=== PATIENT | male | born 1940 | race Hispanic/Latino ===

== ENCOUNTER 2018-04-26 22:12 | Emergency (ER) | payer MEDICARE ==
[~2018-04-26 22:12] MED LIST: ALEN70TA10 PO; AMLO10TA7 PO; FOLI0.4T2 PO; METH2.5T6 PO; OSEL75 PO; SAW/1TAB2 PO; TAMS-1 PO
[2018-04-26 22:41] LABS: BASOPHILS % (AUTO) 0.6 % (0.0-5.0); EOSINOPHILS % (AUTO) 3.9 % (0.0-8.0); HEMATOCRIT 43.4 % (42-54); MEAN CORPUSCULAR HEMOGLOBIN 34.9 pg (27.0-33.0); MEAN CORPUSCULAR HGB CONC 35.1 g/dL (32.0-36.0); MEAN CORPUSCULAR VOLUME 99.2 fL (79-99); MONOCYTES % (AUTO) 15.8 % (3.0-13.0); NEUTROPHILS % (AUTO) 57.7 % (40.0-77.0); NUCLEATED RED BLOOD CELLS 0.1 % (0.0-0.19); PLATELET COUNT (AUTO) 207 K/uL (130-400); RED BLOOD CELL COUNT(AUTO) 4.37 MIL/uL (4.50-6.20); RED CELL DISTRIBUTION WIDTH 13.6 % (11.0-15.5); WHITE BLOOD COUNT (AUTO) 9.5 K/uL (4.8-10.8)
[2018-04-26 23:07] LABS: CREATININE 1.1 mg/dL (0.5-1.5); POTASSIUM 3.7 mmol/L (3.5-5.1)
[2018-04-26 23:11] LABS: ALBUMIN 3.6 g/dL (3.5-5.0); BILIRUBIN,TOTAL 0.7 mg/dL (0.2-1.0); TOTAL PROTEIN, SERUM 8.3 g/dL (6.0-8.3)
[2018-04-26] MEDS ORDERED: SODIUM CHLORIDE 0.9% 1000ML 1,000 ML IV ONE (23:17)
[2018-04-27 00:46] LABS: BILIRUBIN,URINE Negative (NEGATIVE); COLOR,URINE Yellow (YELLOW); GLUCOSE, URINE (UA) Negative (NEGATIVE); KETONES,URINE Trace mg/dL (NEGATIVE); LEUKOCYTE ESTERASE ,URINE Negative (NEGATIVE); NITRATE,URINE Negative (NEGATIVE); OCCULT BLOOD,URINE Moderate (NEGATIVE); PROTEIN,URINE Negative (NEGATIVE)
[2018-04-27 00:53] LABS: APPEARANCE,URINE CLEAR (CLEAR)
[2018-04-27 01:06] LABS: BACTERIA,URINE Few /HPF (None Seen); MUCUS,URINE Rare LPF (None Seen); SQUAMOUS EPITHELIAL CELL,UR 0-2 /HPF (0-2); WBC,URINE 0-1 /HPF (0-1)
== END 2018-04-27 01:54 | disposition home or self-care (01) ==
LOC: EDH 22:12
DX: M62.81 Muscle weakness (generalized) (principal); M06.9 Rheumatoid arthritis, unspecified; G89.29 Other chronic pain; I10 Essential (primary) hypertension; M19.90 Unspecified osteoarthritis, unspecified site; Z88.2 Allergy status to sulfonamides
CPT/HCPCS: 36415; 71046; 80053; 81001; 82550; 83605; 83735; 84484; 85025; 87804 ×2; 93005; 99284; J7030

== ENCOUNTER → 2020-03-16 | Outpatient (CLI) | payer MEDICARE ==
[~2020-03-16] MED LIST changes: -ALEN70TA10 PO; +ALEN70TA69 PO; +AMLO-258 PO; -AMLO10TA7 PO
== END | disposition home or self-care (01) ==
LOC: RAH 08:29
PROVIDERS: ATTEND Physical Medicine & Rehabilitation
DX: M47.812 Spondylosis without myelopathy or radiculopathy, cervical region (principal); M48.02 Spinal stenosis, cervical region
CPT/HCPCS: 72141

== ENCOUNTER 2025-04-09 12:04 | Emergency (ER) | payer MEDICARE ==
[~2025-04-09] VITALS: Ht 177.8 cm; Wt 83.9 kg
[~2025-04-09 12:04] MED LIST changes: -ALEN70TA69 PO; +ALEN70TA80 PO; +AMLO-257 PO; -AMLO-258 PO; +CALC-1125 PO; +CHOL500051 PO; +ETAN50CA3 SQ; +FLUT15.845 NS; -FOLI0.4T2 PO; +LATA2.5D7 OP; -METH2.5T6 PO; +METO-408 PO; -OSEL75 PO; +POVI5DRO OP; -TAMS-1 PO
--- NOTE | 2025-04-09 12:14 | NUR ---
last well known 04/08/25 1946
--- NOTE | 2025-04-09 12:18 | NUR ---
PT TAKEN TO CT AT THIS TIME.
--- NOTE | 2025-04-09 12:32 | EKG ---
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 : 1940 Requested By: RENNY JAVIER Order Number: [id number] Reading MD: Lena Sanders Measurements Intervals Tea Rate: 54 P: 227 AK: 87 QRS: 53 QRSD: 107 T: 161 QT: 483 QTc: 439 Interpretive Statements Sinus or ectopic atrial bradycardia Atrial premature complexes Probable LVH with secondary repol abnrm Abnormal T, probable ischemia, lateral leads Compared to ECG 04/26/2018 22:22:36 Atrial premature complex(es) now present T-wave abnormality now present Sinus rhythm no longer present ST (T wave) deviation no longer present Possible ischemia still present Electronically Signed On 04-11-2025 08:58:38 CLINICAL RESEARCH PHYSICIAN by Lena Sanders Please click the below link to view image of tracing.
[2025-04-09 12:35] LABS: IMMATURE GRANULOCYTE ABSOLUTE 0.10 K/uL (0-1); NUCLEATED RED BLOOD CELLS 0.0 % (0.0-0.19); PLATELET COUNT (AUTO) 209 K/uL (130-400); RED BLOOD CELL COUNT(AUTO) 4.49 MIL/uL (4.50-6.20); RED CELL DISTRIBUTION WIDTH 13.3 % (11.0-15.5); WHITE BLOOD COUNT (AUTO) 14.0 K/uL (4.8-10.8)
[2025-04-09 12:45] LABS: CREATININE 1.2 mg/dL (0.5-1.3); GLOMERULAR FILTR. RATE CALC 60.0 mL/min (>90); GLUCOSE,RANDOM 93.0 mg/dL (70-105); SODIUM SERUM 137.0 mmol/L (136-145); UREA NITROGEN, BLOOD 14.0 mg/dL (7-18)
--- NOTE | 2025-04-09 12:48 | HMCIMG ---
EXAM: CT Head Without IV contrast. CLINICAL HISTORY: TIA TECHNIQUE: Axial computed tomography images of the head/brain without intravenous contrast. COMPARISON: MRI dated 03/22/2020. FINDINGS: BRAIN: No acute bleed or infarct. Stable chronic ischemic and atrophic changes. VENTRICLES: No hydrocephalus. ORBITS: The orbits are unremarkable. SINUSES AND MASTOIDS: The paranasal sinuses and mastoid air cells are clear. BONES: No fracture. SOFT TISSUES: Unremarkable. IMPRESSION: No acute bleed or infarct. Stable chronic ischemic and atrophic changes. /[place]
[2025-04-09 12:49] LABS: INR 0.98 (0.85-1.15)
--- NOTE | 2025-04-09 13:09 | CONS ---
CONSULT NOTE: Eugenio Saenz Neuro Note # Demographics Consult Type: Acute Stroke Level 1 (0-4.5 hrs) Patient Location: Emergency Room First Name: DARELL AGUILAR Last Name: BLANCO Date of : 1940 Age: 84 Gender: Male Facility: [facility] Time of Initial Page (Central Time): 04/09/2025 12:21 First Contact with Site (Central Time): 04/09/2025 12:21 # HPI Chief Complaint: - weakness (focal) History: 84yom with HTN who p/w dysarthria, aphasia, R facial droop. His says when he first woke up at 7:30AM he seemed normal, then symptoms started after. Last Known Normal: - I have collected independent history specific to time last normal or last known well. We have collaborated with the provider and at this time, we have the most current timeline with the information that is available. 7:30AM # Scores Time of exam and NIHSS (Central Time): 04/09/2025 12:48 Level of Consciousness 1a: [0] = Alert; keenly responsive LOC Questions 1b: [2] = Answers neither correctly LOC Commands 1c: [1] = Performs one correctly Best Gaze 2: [0] = Normal Visual 3: [0] = No visual loss Facial Palsy 4: [2] = Partial paralysis Motor Arm Left 5a: [0] = No drift Motor Arm Right 5b: [0] = No drift Motor Leg Left 6a: [0] = No drift Motor Leg Right 6b: [0] = No drift Limb Ataxia 7: [0] = Absent Sensory 8: [0] = Normal Best Language 9: [2] = Severe aphasia Dysarthria 10: [1] = Ixqh-[id number]-gvcpkyel dysarthria Extinction and Inattention 11: [0] = No abnormality NIHSS Total: 8 # Data Time Head CT personally read by me (Central Time): 04/09/2025 12:[address]: - no bleed - preliminarily reviewed by me, please refer to radiology read for official reading # Assessment Impression: - Ischemic Stroke (Acute) # Plan Thrombolytic/Intervention: Possible IA candidate Thrombolytic Exclusion: > 4.5 hours Possible IA Candidate: - CTA pending - If CTA shows large vessel occlusion, notify neurology and/or neuro- interventional team, per hospital protocol. Blood Pressure Management: Use labetolol 10-20mg IV PRN or nicardipine gtt to maintain BP parameters Target Blood Pressure: - SBP < 220 - DBP < 120 Imaging: (urgency: STAT): - CT Angiogram Head and CT Angiogram Neck AND call back with results if abnormal Imaging: (urgency: routine): - MRI Brain without contrast Diagnostic Test: - echo with bubble study Telemetry for a fib monitoring Therapy/Evaluation: - PT/OT evaluation - speech/swallow consultation - NPO until swallow evaluation Medication: - aspirin 81 mg PO daily atorvastatin 80mg daily, goal LDL <70 Other: - If patient has any neurological deterioration please call me back immediately Additional Recommendations: - Hydrate with NS - Permissive HTN for next 24-48 hours, then gradual control by no more than 15% daily monitoring for neurological stability - Avoid dehydration and relative hypotension - Risk factor modification, including smoking cessation and alcohol moderation if appropriate - Monitor glucose and correct as needed - If cryptogenic non-lacunar stroke on MRI, obtain outpatient cardiac monitoring for a fib - Call back for neurological deterioration Disposition: admit # Logistics Attestation of consult completion: The patient is located at: [facility]. Facility staff participated in the visit. I performed this telemedicine visit from my offsite office utilizing interactive 2 way audio and visual telecommunication technology at the request of the onsite emergency room provider. Total time spent in telemedicine encounter: I spent 23 minutes reviewing clinical data and/or imaging, obtaining history, examining the patient, communicating with the onsite care team, and in preparation of this report. # Demographics First Name: DARELL AGUILAR Last Name: BLANCO Facility: [facility] LAKESHIA RITTER MD Apr 09, 2025 13:09
[2025-04-09] MEDS ORDERED: IOHEXOL 350 MG/ML 100ML INFUS..BTL IV ONE (13:11)
--- NOTE | 2025-04-09 13:15 | HMCIMG ---
EXAM: CR Chest, 1 View. CLINICAL HISTORY: Shortness of breath COMPARISON: None provided. FINDINGS: LUNGS: The lungs show no infiltrate or other acute finding. PLEURAL SPACES: No pleural effusion or pneumothorax. MEDIASTINUM: The cardiomediastinal silhouette is within normal limits. BONES: No acute osseous abnormality. IMPRESSION: No acute cardiopulmonary pathology is evident. /[place]
--- NOTE | 2025-04-09 14:21 | HMCIMG ---
EXAM: CTA Head and Neck with and without Intravenous Contrast. CLINICAL HISTORY: SLURRED SPEECH, FACIAL DROOP. CODE STROKE. TECHNIQUE: Axial CTA images of the head and neck performed with and without intravenous contrast in the arterial phase. Coronal and sagittal reformatted images were generated and reviewed. 3-D reformatted images generated on an independent workstation were also reviewed. NASCET criteria were used in assessment of stenosis. CONTRAST: Contrast injected without incident. COMPARISON: Study dated 04/09. FINDINGS: VASCULATURE:NECK: COMMON CAROTID ARTERIES Atherosclerotic calcific changes along the left carotid bulb, without causing significant luminal narrowing. No significant stenosis. No dissection or occlusion. EXTERNAL CAROTID ARTERIES Patent. INTERNAL CAROTID ARTERIES Atherosclerotic calcific changes along the right proximal internal carotid artery, without significant luminal narrowing. No stenosis by NASCET criteria. No dissection or occlusion. VERTEBRAL ARTERIES No significant stenosis. No dissection or occlusion. HEAD: ANTERIOR CEREBRAL ARTERIES No significant stenosis. No occlusion. No aneurysm. MIDDLE CEREBRAL ARTERIES No significant stenosis. No occlusion. No aneurysm. POSTERIOR CEREBRAL ARTERIES No significant stenosis. No occlusion. No aneurysm. BASILAR ARTERY No significant stenosis. No occlusion. No aneurysm. OTHER: SOFT TISSUES No acute finding. BONES No acute osseous abnormality. IMPRESSION: 1. No acute intracranial or cervical vascular findings. /[place]
[2025-04-09 14:57] LABS: APPEARANCE,URINE CLEAR (CLEAR); GLUCOSE, URINE (UA) NEGATIVE (NEGATIVE); LEUKOCYTE ESTERASE ,URINE NEGATIVE Leu/uL (NEGATIVE); NITRATE,URINE NEGATIVE (NEGATIVE); OCCULT BLOOD,URINE NEGATIVE (NEGATIVE)
--- NOTE | 2025-04-09 14:59 | NUR ---
TRANSFER TO [facility] FOR NEUROLOGY SERVICE , TRANSFER WAS INITIATED BY ER CHARGE NURSE SPOKE WITH LIAM CARRINGTON INFORMATION PROVIDED AND WILL CALL BACK. ELDER CANO
--- NOTE | 2025-04-09 14:59 | NUR ---
TRANSFER CENTER NOTIFIED
--- NOTE | 2025-04-09 15:15 | ERN ---
General Chief Complaint: Stroke Symptoms Stated Complaint: SLURRED SPEECH Time Seen by MD: 12:15 History of Present Illness Initial Comments 84-year-old male past medical history of high blood pressure came in for aphasia dysarthria and facial drooping in the right side which started 7:00 a.m. this morning via time patient arrived symptoms has been started for 5-1/2 hours. Patient otherwise has been concerns. Allergies: Uncoded Allergies: SULFA (Allergy, Unknown, 07/25/15) Home Meds Reported Medications Etanercept (Enbrel) 50 Mg/Ml (1 Ml) Cartridge, 50 MG SQ QWEEK, CARTRIDGE 09/09/24 Calcium Carbonate (Calcium) 600 Mg Calcium (1500 Mg) Tablet, 1 TAB PO AM for 30 Days, #60 TAB 0 Refills 09/09/24 Latanoprost (Latanoprost) 0.005 % Drops, 1 DROP OP HS, ML 0 Refills 09/09/24 Povidone/Pf (Ivizia 0.5% Eye Drop) 0.5 % Drops, 5 ML OP BID, DROP 09/09/24 Fluticasone Propionate (Fluticasone Propionate) 50 Mcg/Actuation [place].susp, 1 SPRAY NS BID, #16 GM 0 Refills 09/09/24 Metoprolol Succinate (Metoprolol Succinate) 25 Mg Tab.er.24h, 1 TAB PO DAILY for 30 Days, #30 TAB 0 Refills 09/09/24 Cholecalciferol (Vitamin D3) (Vitamin D3) 125 Mcg (5000 Unit) Capsule, 1 CAP PO DAILY for 30 Days, #30 CAP 0 Refills 09/09/24 Amlodipine Besylate (Amlodipine Besylate) 5 Mg Tablet, 1 TAB PO DAILY for 30 Days, #30 TAB 0 Refills 09/09/24 Saw/Vit E/Sod [place]/Lyc/Beta/Pyg (Prostate Health Caplet) 1 Each Tablet, 2 TAB PO DAILY, TAB 07/25/15 Alendronate Sodium (Alendronate Sodium) 70 Mg Tablet, 70 MG PO QWEEK, TAB Friday07/25/15 Past Medical History Past Medical History: High Cholesterol Past Surgical History: None ROS Dictation Difficulty speaking Physical Exam Physical Exam Dictation Patient has a aphasia dysarthria and facial droop Orientation: (+) alert, (+) oriented x 3 Respiratory: (+) chest non-tender, (+) lungs clear Heart: (+) regular, (+) no gallop Gastrointestinal: (+) soft, (+) non-tender, (+) no organomegaly, (+) bowel sound present NIH STROKE SCALE: NIH STROKE SCALE Response (Comments) Value Level of Consciousness Alert 0 Ask patient month and their age Answers both correct 0 Command to open eyes, make fist and let go Obeys both correct 0 Best gaze (horizontal eye movement) Normal 0 Visual Field Testing No Visual Field Loss 0 Facial Paresis Partial Paralysis 2 Motor Function - Left Arm Normal 0 Motor Function - Right Arm Normal 0 Motor Function - Left Leg Normal 0 Motor Function - Right Leg Normal 0 Limb Ataxia No Ataxia 0 Sensory-pin prick to arms, legs, trunk and face Normal 0 Best Language (describe picture, name items and read) Mild to Mod. Aphasia 1 Dysarthria (read several words) Mild-Mod. Slurring Words 1 Extinction and Inattention Normal 0 Total Results Laboratory and Microbiology Lab and Micro Result Laboratory Tests Test 04/09/25 12:29 04/09/25 14:51 White Blood Count 14.0 K/uL (4.8-10.8) H Red Blood Count 4.49 MIL/uL (4.50-6.20) L Hemoglobin 14.7 g/dL (14.0-18.0) Hematocrit 43.2 % (42-54) Mean Corpuscular Volume 96.2 fL (79-99) Mean Corpuscular Hemoglobin 32.7 pg (27.0-33.0) Mean Corpuscular Hemoglobin Concent 34.0 g/dL (32.0-36.0) Red Cell Distribution Width 13.3 % (11.0-15.5) Platelet Count 209 K/uL (130-400) Mean Platelet Volume 10.6 fL (7.5-10.5) H Immature Granulocyte % (Auto) 0.7 % (0-1) Neutrophils (%) (Auto) 48.0 % (40.0-77.0) Lymphocytes (%) (Auto) 35.5 % (21.0-51.0) Monocytes (%) (Auto) 12.8 % (3.0-13.0) Eosinophils (%) (Auto) 2.4 % (0.0-8.0) Basophils (%) (Auto) 0.6 % (0.0-5.0) Neutrophils # (Auto) 6.7 K/uL (1.8-7.7) Lymphocytes # (Auto) 5.0 K/uL (1.0-4.8) H Monocytes # (Auto) 1.8 K/uL (0.1-1.0) H Eosinophils # (Auto) 0.34 K/uL (0.00-0.70) Basophils # (Auto) 0.08 K/uL (0.00-0.20) Absolute Immature Granulocyte (auto 0.10 K/uL (0-1) Nucleated Red Blood Cells 0.0 % (0.0-0.19) Prothrombin Time 10.4 SEC (9.6-11.6) Prothromb Time International Ratio 0.98 (0.85-1.15) Activated Partial Thromboplast Time 24.9 SEC (26.3-35.5) L Sodium Level 137 mmol/L (136-145) Potassium Level 3.8 mmol/L (3.5-5.1) Chloride Level 105 mmol/L (101-111) Carbon Dioxide Level 27 mmol/L (21-32) Blood Urea Nitrogen 14 mg/dL (7-18) Creatinine 1.2 mg/dL (0.5-1.3) Glomerular Filtration Rate Calc 60 mL/min (>90) Random Glucose 93 mg/dL (70-105) Total Calcium 9.3 mg/dL (8.5-10.1) Troponin I High Sensitivity 8 ng/L (4-75) Urine Color LIGHT-YELLOW (YELLOW) Urine Appearance CLEAR (CLEAR) Urine pH 7.0 (5.0-8.0) Urine Specific [place] 1.029 (1.001-1.031) Urine Protein NEGATIVE mg/dL (NEGATIVE) Urine Glucose (UA) NEGATIVE mg/dL (NEGATIVE) Urine Ketones NEGATIVE mg/dL (NEGATIVE) Urine Occult Blood NEGATIVE (NEGATIVE) Urine Nitrate NEGATIVE (NEGATIVE) Urine Bilirubin NEGATIVE mg/dL (NEGATIVE) Urine Urobilinogen 0.2 mg/dL (0.2-1.0) Urine Leukocyte Esterase NEGATIVE Sol/uL MDM Patient is a not a candidate for tPA as he is outside of the window. As per teleneurologist since CT angio head is negative along with the CT head patient has been admitted for stroke were. At this point we do not have on-call neurologist and patient will be transferred to [facility] report has been given an patient is a accepted. ED Course Orders Procedure Category Date Status Time 12 Lead Ekg Tracing- EKG 04/09/25 Complete Technical 12:07 Cbc With Differential LAB 04/09/25 Complete 12:07 Basic Metabolic Panel LAB 04/09/25 Complete 12:07 Troponin I High LAB 04/09/25 Complete Sensitivity 12:07 Pt And Ptt LAB 04/09/25 Complete 12:07 Urinalysis LAB 04/09/25 In Process W/Microscopic 12:07 Chest 1vw RAD 04/09/25 Resulted 12:07 Ct Head/Brain W/O CT 04/09/25 Resulted Contrast 12:07 Iv Insertion CPOE 04/09/25 Transmitted 12:55 Ct Angio Head And Neck CT 04/09/25 Resulted 13:06 Iohexol (Omnipaque) PHA 04/09/25 Complete 13:11 Current Medications Medications (Trade) Dose Ordered Sig/Keira Route PRN Reason Start Time Stop Time Status Last Admin Dose Admin Iohexol (Omnipaque) 35,000 mg STK-MED ONCE IV 04/09/25 13:11 04/09/25 13:11 DC Vital Signs Date Time Temp Pulse Resp B/P (MAP) Pulse Ox O2 Delivery O2 Flow Rate FiO2 04/09/25 14:55 97.9 61 17 156/71 99 Room Air* 0 04/09/25 13:10 97.9 78 20 180/89 97 Room Air* 0 21 04/09/25 12:05 98.1 74 18 140/87 97 DX & DISP Disposition: Transfer Departure Impression: Primary Impression: Stroke Condition: Stable Referrals: GERARDO CARRILLO MD (PCP) RENNY JAVIER MD Apr 09, 2025 15:15
--- NOTE | 2025-04-09 15:43 | NUR ---
[facility] NEFTALI TO GO TO ROOM 1334 REPORT # [phone] JOSIAH WASHBURN AT 1505 LIAM CARRINGTON 1509
--- NOTE | 2025-04-09 15:45 | NUR ---
TRANSFER CALL BACK WITH ACCEPTANCE BY DR JOSIAH WASHBURN AT 1505 TO ROOM 1335 AND PRIMARY NURSE TO CALL REPORT TO [phone] AND EMS WHEN READY. ELDER CANO
--- NOTE | 2025-04-09 16:56 | NUR ---
SPOKE WITH VIDYA CANO AT [facility] VIA TELEPHONE TO GIVE REPORT FOR TRANSFER.
--- NOTE | 2025-04-09 17:00 | NUR ---
SPOKE WITH GWENDOLYN AT [facility] VIA TELEPHONE TO TRANSFER PATIENT TO [facility].
--- NOTE | 2025-04-09 18:04 | NUR ---
[facility] ARRIVAL TIME
[2025-04-09 18:10] VITALS: BP 164/79; PULSE 62; RESP 14; TEMP 97.9; O2SAT 99
--- NOTE | 2025-04-09 18:10 | NUR ---
PATIENT HAS LEFT WITH [facility] FOR TRANSFER TO [facility].
== END 2025-04-09 18:22 | disposition short-term general hospital (02) ==
LOC: EDH 12:04
DX: I63.9 Cerebral infarction, unspecified (principal); E78.00 Pure hypercholesterolemia, unspecified; I10 Essential (primary) hypertension; Z88.2 Allergy status to sulfonamides; Z79.82 Long term (current) use of aspirin; Z79.899 Other long term (current) drug therapy
CPT/HCPCS: 99285; 70496; 71045; 84484; 80048; 85025; 85610; 85730; 81001; 36415; 70498; 93005; 70450; Q9967